=== PATIENT | male | born 1980 | race Caucasian/White ===

== ENCOUNTER 2017-06-29 07:20 | Emergency (ER) | payer OTHER ==
[~2017-06-29] VITALS: Ht 175.3 cm; Wt 92.4 kg
[~2017-06-29 07:20] MED LIST: ACET-2158 GTB; ALBU8.5H3 INH; LORA10CA PO
[2017-06-29 07:22] VITALS: Ht 175.3 cm; Wt 92.4 kg
--- NOTE | 2017-06-29 08:12 | ERD ---
ER Documentation Chief Complaint Chief Complaint cough x 1 week, bodyache and fever this morning HPI 36-year-old male, previously healthy, presents to the emergency department complaining of 1 week of progressive productive cough, associated with subjective fever general malaise and since last night he has developed diarrhea , 6, watery, greenish, no blood or mucus noticed. The patient has not tried any medications. Denies abdominal pain, chest pain, dizziness. ROS SYSTEMIC symptoms: Subjective fever, no chills, no night sweats, no weight loss EYE symptoms: No blurred vision, no eye discharge OTOLARYNGEAL symptoms: No hearing loss. No ear pain, no sore throat CARDIOVASCULAR symptoms: No chest pain or discomfort, no palpitations. PULMONARY symptoms: No dyspnea, productive cough, no wheezing. GASTROINTESTINAL symptoms: No abdominal pain, greenish diarrhea MUSCULOSKELETAL symptoms: No arthralgias, no muscle aches. NEUROLOGY symptoms: No confusion, no syncope, no numbness or tingling. SKIN: No rashes Medications Home Meds Active Scripts Ibuprofen* (Ibuprofen*) 600 Mg Tablet, 600 MG PO Q8 for PAIN AND/OR INFLAMMATION , #20 TAB Prov:BRENNAN FELIPE MD 06/29/17 Diphenoxylate HCl/Atropine (Lomotil 2.5-0.025 mg Tablet) 1 Each Tablet, 1 TAB PO TID Y for DIARRHEA for 3 Days, #10 TAB Prov:BRENNAN FELIPE MD 06/29/17 Promethazine HCl/Codeine (Prometh-Codein 6.25-10 mg/5 ml) 5 Ml Syrup, 5 ML PO TID for 3 Days, #120 ML Prov:BRENNAN FELIPE MD 06/29/17 Loratadine* (Claritin*) 10 Mg Capsule, 10 MG PO DAILY Y for Congestion, #10 CAP Prov:BRYAN MCBRIDE MD 09/27/15 Acetaminophen (TYLENOL 325 MG TAB) 325 Mg Tab, 325 MG GTB Q6 Y for FEVER, #20 TAB Prov:BRYAN MCBRIDE MD 09/27/15 Albuterol Sulfate* (Proair HFA*) 8.5 Gm Hfa.aer.ad, 2 PUFF INH Q6H Y for WHEEZING AND SOB, #1 INHALER Prov:BRYAN MCBRIDE MD 09/27/15 Allergies Allergies: Coded Allergies: No Known Allergy (Unverified , 09/12/13) PMhx/Soc History of Surgery: No Hx Cardiac Disorders: Yes (CLOT IN HEART) 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 Alert and fully oriented. EYES: PERRLA, EOMI, Sclera and conjunctiva appear normal. EARS: Canals clear, tympanic membranes WNL THROAT: Dry oral mucosa, normal oropharynx. NECK: Supple, No lymphadenopathy. Full ROM without pain or tenderness. HEART: RRR, no rubs, murmurs, clicks or gallops. LUNGS: Clear to auscultation. ABDOMEN: Soft, non-tender without masses or hepatosplenomegaly. EXTREMITIES: No edema bilaterally. BACK: Full ROM, no deformity, normal back exam NEURO: Cranial nerves grossly intact, no motor or sensory deficit Results 24 hrs Current Medications Medications (Trade) Dose Ordered Sig/Aneudy Route PRN Reason Start Time Stop Time Status Last Admin Dose Admin Sodium Chloride (NS) 500 ml @ 500 mls/hr Q1H STAT IV 06/29/17 08:15 06/29/17 09:14 DC 06/29/17 08:45 Ondansetron HCl (Zofran Inj) 4 mg ONCE STAT IV 06/29/17 08:15 06/29/17 08:20 DC 06/29/17 08:45 Famotidine (Pepcid Iv) 20 mg ONCE STAT IV 06/29/17 08:15 06/29/17 08:20 DC 06/29/17 08:45 Ketorolac Tromethamine (Toradol) 30 mg ONCE STAT IV 06/29/17 08:15 06/29/17 08:20 DC 06/29/17 08:45 Procedures/MDM 36 y/o male patient previously healthy, presents to the ED c/o cough for a few days and diarrhea for 1 day. Vital signs stable, Physical exam unremarkable, dry oral mucosa consistent with mild dehydration. Differential diagnosis include but not limited to: Colitis, gastroenteritis, appendicitis, viral infection. Low suspicion for acute abdomen, low suspicion for pneumonia. Physical examination and clinical presentation consistent most likely with viral syndrome with respiratory and gastrointestinal symptoms.. During the ED course the patient received treatment with IV fluids, ranitidine and Toradol presenting overall improvement of the symptoms. Results and clinical impression discussed with patient who agrees with management. The patient is stable to be treated outpatient and will be discharged home with a Rx for Lomotil, promethazine and codeine and ibuprofen as needed for pain Side effects of prescribed medications (headache, rash, nausea, vomiting, diarrhea) were reviewed. Side effects of prescribed opiates (drowsiness, habituation) were reviewed. Side effects of prescribed NSAID medication (GI distress, edema, bleeding, HTN) were reviewed. The patient was instructed to follow up with the primary care provider in the next 48h. If symptoms persist, worsen or new symptoms develop, then patient should return to the ED immediately. Instructions explained and given to patient in Armenian with acknowledgment and demonstrated understanding. Disclaimer: Inadvertent spelling and grammatical errors are likely due to EHR/ dictation software use and do not reflect on the overall quality of patient care. Also, please note that the electronic time recorded on this note does not necessarily reflect the actual time of the patient encounter. Departure Diagnosis: Primary Impression: Nonspecific syndrome suggestive of viral illness Additional Impressions: Cough Gastroenteritis BRENNAN FELIPE MD Jun 29, 2017 08:12
[2017-06-29] MEDS ORDERED: KETOROLAC 30 MG INJ IV STA (08:15)
[2017-06-29] MEDS ORDERED: ONDANSETRON 4 MG INJ IV STA (08:15)
[2017-06-29] MEDS ORDERED: SOD CHLORIDE 0.9% 500 ML IV STA (08:15)
[2017-06-29] MEDS ORDERED: FAMOTIDINE 20 MG INJ IV STA (08:15)
[2017-06-29] MEDS ORDERED: DIPH1TAB PO (09:44)
[2017-06-29] MEDS ORDERED: PROM5SYR2 PO (09:44)
[2017-06-29] MEDS ORDERED: IBUP-1542 PO (09:44)
[2017-06-29 09:56] VITALS: BP 97/59; PULSE 94; RESP 20; TEMP 99.1
== END 2017-06-29 09:57 | disposition home or self-care (01) ==
LOC: FTE 07:20
DX: B34.9 Viral infection, unspecified (principal); K52.9 Noninfective gastroenteritis and colitis, unspecified
CPT/HCPCS: 96374; 96375; J1885; J2405; J7040; Z7502; Z7610

== ENCOUNTER 2017-10-25 04:32 | Emergency (ER) | END 2017-10-25 11:17 | disposition home or self-care (01) ==

== ENCOUNTER 2018-04-28 20:34 | Emergency (ER) | END 2018-04-28 23:34 | disposition home or self-care (01) ==

== ENCOUNTER 2018-08-28 15:36 | Emergency (ER) | payer OTHER ==
[~2018-08-28] VITALS: Ht 167.6 cm; Wt 93.8 kg
[~2018-08-28 15:36] MED LIST changes: -ALBU8.5H3 INH; +ALBU8.5H8 INH; +DIPH1TAB PO; +IBUP-1542 PO; +ONDA4TAB14 PO; +PROM5SYR2 PO; +TRAM50TA2 PO
[2018-08-28 15:40] VITALS: Ht 167.6 cm; Wt 93.8 kg
[2018-08-28] MEDS ORDERED: SOD CHLORIDE 0.9% 1,000 ML IV STA (18:13)
[2018-08-28] MEDS ORDERED: FOLI-49 PO (18:29)
[2018-08-28] MEDS ORDERED: ASPI-817 PO (18:30)
[2018-08-28] MEDS ORDERED: SIMV40TA2 PO (18:30)
[2018-08-28] MEDS ORDERED: CHOL400T10 PO (18:33)
[2018-08-28] MEDS ORDERED: ERGO500013 PO (18:33)
--- NOTE | 2018-08-28 20:11 | ERD ---
ER Documentation Chief Complaint Chief Complaint Complains of weakness and faintness (ambulatory in triage) HPI 37-year-old male with a complicated medical history presenting with complaints of generalized weakness for about 1 week with lightheadedness for the past 2 days. His lightheadedness is not associated with exertion. He denies any associated chest pain, shortness of breath, abdominal pain, vision disturbance, focal weakness or numbness. Denies any headache, nausea, vomiting. No leg swelling or pain. Patient does have a medical history of having some type of blood clot in his chest that caused him to have a cardiac arrest when he was 19 years old. He was told that he was factor V Leiden and was put on Coumadin for several years. He later followed up with another lathe machine operator at stated that he was negative for factor V Leiden and did not have a coagulopathy that they could find. at that time he was taken off the Coumadin and has been doing well since. A few months ago he had inflammation in his left lower extremity vein and was diagnosed with a superficial blood clot but no treatment was started at that time. He was then referred to a lathe machine operator by his primary care doctor. Recently he saw a hemat ologist who told him that he had an elevated hemoglobin and this was treated with phlebotomy per the patient. At this time he is not on any anticoagulants and denies any other medical problems. ROS All systems reviewed and are negative except as per history of present illness. Medications Home Meds Reported Medications Cholecalciferol* (Vitamin D*) Unknown Strength Tablet, 1 TAB PO DAILY, TAB 08/28/18 Ergocalciferol (Vitamin D2) (VITAMIN D2) 50,000 Unit Capsule, 84135 UNIT PO Q7D, CAP PATIENT HAS BEEN PRESCRIBED TAKE 1CAP-Q7D, BUT HE TAKE DAILY FOR 4 DAYS 08/28/18 Aspirin* (Aspirin* EC) 81 Mg Tablet., 81 MG PO DAILY, TAB 08/28/18 Simvastatin* (Zocor*) 40 Mg Tablet, 40 MG PO QHS, #30 TAB 08/28/18 Folic Acid* (Folic Acid*) 1 Mg Tablet, 1 MG PO DAILY, TAB 08/28/18 Discontinued Scripts Ibuprofen* (Motrin*) 600 Mg Tab, 600 MG PO Q6, #30 TAB Prov:NOMI MANRIQUE PA-C 04/28/18 Tramadol HCl (Tramadol HCl) 50 Mg Tablet, 50 MG PO Q6 PRN for PAIN, #8 TAB Prov:BRYAN MCBRIDE MD 10/25/17 Ondansetron (Ondansetron Odt) 4 Mg Tab.rapdis, 4 MG PO Q6H PRN for NAUSEA AND/OR VOMITING, #10 TAB Prov:BRYAN MCBRIDE MD 10/25/17 Ibuprofen* (Ibuprofen*) 600 Mg Tablet, 600 MG PO Q8 for PAIN AND/OR INFLAMMATION, #20 TAB Prov:BRENNAN FELIPE MD 06/29/17 Diphenoxylate HCl/Atropine (Lomotil 2.5-0.025 mg Tablet) 1 Each Tablet, 1 TAB PO TID PRN for DIARRHEA for 3 Days, #10 TAB Prov:BRENNAN FELIPE MD 06/29/17 Promethazine HCl/Codeine (Prometh-Codein 6.25-10 mg/5 ml) 5 Ml Syrup, 5 ML PO TID for 3 Days, #120 ML Prov:BRENNAN FELIPE MD 06/29/17 Loratadine* (Claritin*) 10 Mg Capsule, 10 MG PO DAILY PRN for Congestion, #10 CAP Prov:BRYAN MCBRIDE MD 09/27/15 Acetaminophen (TYLENOL 325 MG TAB) 325 Mg Tab, 325 MG GTB Q6 PRN for FEVER, #20 TAB Prov:BRYAN MCBRIDE MD 09/27/15 Albuterol Sulfate* (Proair HFA*) 8.5 Gm Hfa.aer.ad, 2 PUFF INH Q6H PRN for WHEEZING AND SOB, #1 INHALER Prov:BRYAN MCBRIDE MD 09/27/15 Allergies Allergies: Coded Allergies: No Known Allergy (Unverified , 08/28/18) PMhx/Soc History of Surgery: Yes (Balloon angioplasty) Hx Cardiac Disorders: Yes (NH at 23 yrs old) Hx Miscellaneous Medical Probl: Yes (Intrathoracic blood clot, unspecified location) Hx Alcohol Use: No Hx Substance Use: No Hx Tobacco Use: No Smoking Status: Never smoker FmHx Family History: No diabetes, No coronary disease Physical Exam Vitals Vital Signs Date Temp Pulse Resp B/P (MAP) Pulse Ox O2 O2 Flow FiO2 Time Delivery Rate 1/21/19 98.5 82 18 142/90 100 Room Air 2.0 20:34 (107) 08/28/18 98.5 78 20 141/94 98 Room Air 2.0 19:41 (110) 08/28/18 98.5 80 16 140/100 99 Nasal 2.0 18:38 (113) Cannula 08/28/18 89 17 153/99 99 Nasal 2.0 18:07 (117) Cannula 08/28/18 98.7 103 20 167/102 98 15:40 (123) Physical Exam Const: No acute distress, well-appearing, nontoxic Head: Atraumatic Eyes: Normal Conjunctiva, PERRLA ENT: Normal External Ears, Nose and Mouth. Neck: Full range of motion. No meningismus. Resp: Clear to auscultation bilaterally Cardio: Regular rate and rhythm, no murmurs. 2+ distal pulses in all 4 extremities Abd: Soft, non tender, non distended. Normal bowel sounds Skin: No petechiae or rashes Back: No midline or flank tenderness Ext: No cyanosis, or edema Neur: Awake and alert, oriented x3, cranial nerves intact, strength and sensations intact in all 4 extremities. Normal steady gait. Psych: Normal Mood and Affect Result Diagram: 08/28/18 1744 08/28/18 1744 Results 24 hrs Laboratory Tests Test 08/28/18 17:44 White Blood Count 10.4 10^3/ul Red Blood Count 5.60 10^6/ul Hemoglobin 16.9 g/dl Hematocrit 49.6 % Mean Corpuscular Volume 88.6 fl Mean Corpuscular Hemoglobin 30.2 pg Mean Corpuscular Hemoglobin Concent 34.1 g/dl Red Cell Distribution Width 12.1 % Platelet Count 258 10^3/UL Mean Platelet Volume 9.3 fl Immature Granulocytes % 0.500 % Neutrophils % 69.2 % Lymphocytes % 20.4 % Monocytes % 7.8 % Eosinophils % 1.9 % Basophils % 0.2 % Nucleated Red Blood Cells % 0.0 /100WBC Immature Granulocytes # 0.050 10^3/ul Neutrophils # 7.2 10^3/ul Lymphocytes # 2.1 10^3/ul Monocytes # 0.8 10^3/ul Eosinophils # 0.2 10^3/ul Basophils # 0.0 10^3/ul Nucleated Red Blood Cells # 0.0 10^3/ul Prothrombin Time 12.5 Sec Prothrombin Time Ratio 1.0 INR International Normalized Ratio 0.92 Activated Partial Thromboplast Time 25.8 Sec Sodium Level 140 mmol/L Potassium Level 4.1 mmol/L Chloride Level 100 mmol/L Carbon Dioxide Level 32 mmol/L Anion Gap 8 Blood Urea Nitrogen 13 mg/dl Creatinine 1.10 mg/dl Est Glomerular Filtrat Rate mL/min > 60 mL/min Glucose Level 99 mg/dl Calcium Level 9.8 mg/dl Total Bilirubin 0.1 mg/dl Direct Bilirubin 0.00 mg/dl Indirect Bilirubin 0.1 mg/dl Aspartate Amino Transf (AST/SGOT) 36 IU/L Alanine Aminotransferase (ALT/SGPT) 20 IU/L Alkaline Phosphatase 103 IU/L Troponin I < 0.012 ng/ml Total Protein 8.6 g/dl Albumin 4.8 g/dl Globulin 3.80 g/dl Albumin/Globulin Ratio 1.26 Current Medications Medications Dose Sig/Aneudy Start Time Status Last (Trade) Ordered Route PRN Stop Time Admin Dose Reason Admin Sodium 1,000 ml @ Q1H STAT 08/28/18 DC 08/28/18 Chloride 1,000 mls/hr IV 18:13 18:23 08/28/18 19:12 Procedures/MDM EMERGENT LABS AND DIAGNOSTIC STUDIES: Lab Results above were reviewed and interpreted by me. CBC: no anemia or evidence of infection CMP: No evidence of electrolyte abnormality, renal failure, hypoglycemia, liver failure, or biliary obstruction Troponin within normal limits, not indicative of cardiac ischemia 12-lead EKG was interpreted by Ricardo Kruger MD: Normal Sinus Rhythm Normal axis Normal intervals No acute ST or T wave changes suggestive of acute ischemia or STEMI. Radiology Results as interpreted by Radiology below were reviewed by Ace Kruger MD: Chest x-ray shows no acute abnormalities Initial Nursing notes reviewed. Previous Medical Records requested via the Electronic Health Record. EMERGENCY DEPARTMENT COURSE / MEDICAL DECISION MAKING: The patients vitals are within normal limits and labs are unremarkable. The ECG did not show any concerning abnormalities. I have a low suspicion for an arrhythmia, acute coronary syndrome, PE or a CVA or intracranial hemorrhage. Etiology for near syncope is unknown but likely benign despite the patient's history. It is unclear if he had an NH or PE that caused his cardiac arrest. However he does not have any diagnosed coagulopathy at this time. I discussed the risks and benefits of doing a d-dimer with the patient and the possibility that we felt may lead to CT angiogram of the chest exposing him to radiation. The risks and benefits of this were discussed. After shared decision making, the patient decided that he did not want the d-dimer done as he is not having any symptoms that he did with his problem that he had in his 20s. Patient actually told me that he feels like he may be dehydrated as he is not very good about drinking water at work. He requested IV fluids. 1 L of IV fluids was given. Upon reevaluation, patient's symptoms have stabilized while in the department and are suitable for outpatient follow up. I advised follow up with primary care physician in 1-2 days. Return precautions were discussed at bedside. Patient's blood pressure was elevated (>120/80) but appears stable without evidence of hypertensive emergency or urgency. The patient was counseled about the risks of hypertension and urged to pursue outpatient monitoring and therapy within a week with their primary care physician. Departure Diagnosis: Primary Impression: Generalized weakness Additional Impression: Near syncope Condition: Stable Patient Instructions: Near Syncope, Unknown, Weakness, Unk Cause Additional Instructions: If any of your symptoms worsen, please return to the ER immediately. Otherwise follow-up with your primary care doctor in the next 1-2 days. ABY KRUGER MD Aug 28, 2018 20:11
[2018-08-28 20:34] VITALS: BP 142/90; PULSE 82; RESP 18
== END 2018-08-28 20:35 | disposition home or self-care (01) ==
LOC: FTE 15:36 → E/R 20:35
DX: R53.1 Weakness (principal); R55 Syncope and collapse; I25.2 Old myocardial infarction; Z98.61 Coronary angioplasty status; Z79.82 Long term (current) use of aspirin
CPT/HCPCS: 36415; 71045; 80053; 84484; 85025; 85610; 85730; 93005; J7030; Z7502